=== PATIENT | male | born 1965 | race Caucasian/White ===

== ENCOUNTER → 2017-08-02 | Outpatient (CLI) | payer BC, OTHER | LOC: RAD 09:26 | DX: J11.1 Influenza due to unidentified influenza virus with other respiratory manifestations (principal); M51.34 Other intervertebral disc degeneration, thoracic region; R50.9 Fever, unspecified ==

== ENCOUNTER → 2021-01-06 | Outpatient (CLI) | payer OTHER | LOC: CAT 16:05 | PROVIDERS: ATTEND Family Medicine | DX: Z13.6 Encounter for screening for cardiovascular disorders (principal); E78.00 Pure hypercholesterolemia, unspecified; I25.10 Atherosclerotic heart disease of native coronary artery without angina pectoris ==

== ENCOUNTER → 2021-01-09 | Outpatient (CLI) | payer BC, OTHER | LOC: SJCVCIMAG 10:37 | PROVIDERS: ATTEND Internal Medicine Cardiovascular Disease | DX: I10 Essential (primary) hypertension (principal); R53.83 Other fatigue; R06.00 Dyspnea, unspecified; R07.89 Other chest pain ==